=== PATIENT | female | born 1970 | race Caucasian/White ===

== ENCOUNTER 2020-05-16 16:57 | Emergency (ER) | payer BC ==
[2020-05-16] MEDS ORDERED: Boostrix 0.5 ML (Tdap) VIAL ONE (18:00)
--- NOTE | 2020-05-16 18:43 | RAD ---
3 views of the left thumb: 05/16/2020 COMPARISON: None HISTORY: Injury, trauma, pain FINDINGS: Partial amputation involving the soft tissues of the left thumb seen distally. No associate d radiopaque foreign body or fracture/dislocation. IMPRESSION: Prominent soft tissue injury involving the distal aspect of the left thumb. No associated fracture or dislocation appreciated.
[2020-05-16] MEDS ORDERED: Lidocaine 1% (PF) 30 ML VIAL ONE (19:24)
[2020-05-16] MEDS ORDERED: Bacitracin 1 PK ONE (21:11)
== END 2020-05-16 21:35 | disposition home or self-care (01) ==
LOC: ERS 16:57
DX: S61.012A Laceration without foreign body of left thumb without damage to nail, initial encounter (principal); W26.8XXA Contact with other sharp object(s), not elsewhere classified, initial encounter; I10 Essential (primary) hypertension
CPT/HCPCS: 12004; 90471; 90715; 96365; J0690; J2001